=== PATIENT | female | born 1980 | race Two or more races ===

== ENCOUNTER 2018-06-01 22:12 | Emergency (ER) | payer OTHER ==
--- NOTE | 2018-06-01 22:22 | EDPHY ---
H & P Stated Complaint: back pain Time Seen by Provider: 06/01/18 22:22 HPI/ROS: HPI CHIEF COMPLAINT: Right-sided back pain CVA. HISTORY OF PRESENT ILLNESS: Very pleasant 38-year-old female she is otherwise healthy without any significant medical history she presents emergency room right-sided back pain. The pain is located right CVA and right paravertebral lumbar spine region it radiates down into her right lower abdomen and groin. At some time she does feel pain go down her right gluteus into her right leg. Not to her foot. Patient denies any injury. She denies nausea vomiting. Patient reports his pain has been present for the past 1-2 weeks however getting worse. Worse over the last 24 hr. Main complaint right back pain CVA region. Radiating to the abdomen sharp stabbing. Denies urinary symptoms Denies fever Denies blood in her urine Has never had this before. Past Medical History: Denies medical history Past Surgical History: Denies surgical history Social History: Denies drugs alcohol tobacco. Family History: Noncontributory ROS REVIEW OF SYSTEMS: 10 Systems were reviewed and negative with the exception of the elements mentioned in the history of present illness. Exam Constitutional triage nursing summary reviewed, vital signs reviewed, awake/ alert. Eyes normal conjunctivae and sclera, EOMI, PERRLA. HENT normal inspection, atraumatic, moist mucus membranes, no epistaxis, neck supple/ no meningismus, no raccoon eyes. Respiratory clear to auscultation bilaterally, normal breath sounds, no respiratory distress, no wheezing. Cardiovascular rate normal, regular rhythm, no murmur, no edema, distal pulses normal. Gastrointestinal soft, non-tender, no rebound, no guarding, normal bowel sounds, no distension, no pulsatile mass. Genitourinary mild tender palpation right CVA. Musculoskeletal no midline vertebral tenderness, full range of motion, no calf swelling, no tenderness of extremities, no meningismus, good pulses, neurovascularly intact. Skin pink, warm, & dry, no rash, skin atraumatic. Neurologic awake, alert and oriented x 3, AAOx3, moves all 4 extremities equally, motor intact, sensory intact, CN II-XII intact, normal cerebellar, normal vision, normal speech. Psychiatric normal mood/affect. Heme/Lymph/Immune no lymphadenopathy. Differential diagnosis includes but is not limited to and in no particular order : Bowel obstruction, appendicitis, gallbladder disease, diverticulitis, colitis , enteritis, perforated viscus, gastritis, GERD, esophagitis, urinary tract infection, pyelonephritis, kidney stones also includes lumbar radiculopathy, annular tear, nerve root compression, disc herniation, compression fracture, kidney stone Medical Decision Making: Plan for this patient CT scan abdomen pelvis without contrast for kidney stone, IV establishment with IV fluid bolus IV Dilaudid for pain control IV Zofran for nausea, IV fluid bolus, basic blood work, urinalysis , rule out kidney stones versus sciatica. Re-evaluation: CT scan abdomen pelvis without contrast negative for acute kidney stone. Constipation present. Blood work reviewed anemia present. CT scan shows no evidence of acute inflammation Back pain possibly sciatica. Follow up with her primary care doctor Provided prescription for ibuprofen, prednisone, [place]. Only take [place] for severe pain. Follow up with primary care doctor. Patient re-evaluated at 12:21 a.m. Resting comfortably no acute distress. Pain improved and no pain at this time after IV Dilaudid. Source: Patient - Personal History LMP (Females 10-55): 8-14 Days Ago - Medical/Surgical History Hx Asthma: No Hx Chronic Respiratory Disease: No Hx Diabetes: No Hx Cardiac Disease: No Hx Renal Disease: No Hx Cirrhosis: No Hx Alcoholism: No Hx HIV/AIDS: No Hx Splenectomy or Spleen Trauma: No - Social History Smoking Status: Never smoked Constitutional: Initial Vital Signs Temperature (C) 36.7 C 06/01/18 22:17 Heart Rate 73 06/01/18 22:17 Respiratory Rate 20 06/01/18 22:17 Blood Pressure 119/41 L 06/01/18 22:17 O2 Sat (%) 93 06/01/18 22:17 O2 Delivery Mode Room Air Allergies/Adverse Reactions: No Known Allergies Allergy (Unverified 06/01/18 22:17) Home Medications: Medication Instructions Recorded Hydrocodone/APAP 5/325 [[place] 1 - 2 tab PO Q4H PRN #10 tab 06/02/18 5/325] Ibuprofen [Motrin (*)] 800 mg PO Q6-8PRN #14 tab 06/02/18 predniSONE 60 mg PO DAILY #9 tab 06/02/18 Medical Decision Making - Diagnostics Imaging Results: Imaging Impressions Abdomen/Pelvis CT 12/15/18 22:31 Impression: 1. Moderate stool in the proximal colon. 2. Additional findings as above. Findings discussed with Alfonso Barr MD 06/02/2018 at 0:09. Attention: This CT examination is specifically designed to evaluate patients who are clinically suspected of having acute obstructive uropathy. This examination does not use radiographic contrast and provides only a limited evaluation of the abdomen, pelvis and retroperitoneum. If there is further clinical suspicion for pathological conditions other than obstructive uropathy, a complete CT evaluation of the abdomen and pelvis utilizing intravenous and enteric contrast should be considered. - Data Points Laboratory Results: Laboratory Results 06/01/18 22:36 06/01/18 22:36 06/01/18 06/01/18 06/01/18 23:14 22:36 22:36 WBC RBC Hgb Hct MCV MCH MCHC RDW Plt Count MPV Neut % (Auto) Lymph % (Auto) Wheeler % (Auto) Eos % (Auto) Baso % (Auto) Nucleat RBC Rel Count Absolute Neuts (auto) Absolute Lymphs (auto) Absolute Monos (auto) Absolute Eos (auto) Absolute Basos (auto) Absolute Nucleated RBC Immature Gran % Immature Gran # Sodium 138 mEq/L mEq/L (135-145) Potassium 3.9 mEq/L mEq/L (3.5-5.2) Chloride 107 mEq/L mEq/L (97-110) Carbon Dioxide 24 mEq/l mEq/l (22-31) Anion Gap 7 mEq/L mEq/L (6-14) BUN 17 mg/dL mg/dL (7-23) Creatinine 0.8 mg/dL mg/dL (0.6-1.0) Estimated GFR > 60 Glucose 93 mg/dL mg/dL (70-100) Calcium 9.5 mg/dL mg/dL (8.5-10.4) Total Bilirubin 0.3 mg/dL mg/dL (0.1-1.4) Conjugated Bilirubin 0.2 mg/dL mg/dL (0.0-0.5) Unconjugated Bilirubin 0.1 mg/dL mg/dL (0.0-1.1) AST 16 IU/L IU/L (14-46) ALT 22 IU/L IU/L (9-52) Alkaline Phosphatase 72 IU/L IU/L (38-126) Total Protein 6.8 g/dL g/dL (6.3-8.2) Albumin 3.9 g/dL g/dL (3.5-5.0) Lipase 154 IU/L IU/L (23-300) Beta HCG, Qual NEGATIVE Urine Color YELLOW Urine Appearance CLEAR Urine pH 6.0 (5.0-7.5) Ur Specific [place] 1.019 (1.002-1.030) Urine Protein NEGATIVE (NEGATIVE) Urine Ketones NEGATIVE (NEGATIVE) Urine Blood NEGATIVE (NEGATIVE) Urine Nitrate NEGATIVE (NEGATIVE) Urine Bilirubin NEGATIVE (NEGATIVE) Urine Urobilinogen NEGATIVE EU EU (0.2-1.0) Ur Leukocyte Esterase NEGATIVE (NEGATIVE) Urine Glucose NEGATIVE (NEGATIVE) 06/01/18 22:36 WBC 7.94 10^3/uL 10^3/uL (3.80-9.50) RBC 4.25 10^6/uL 10^6/uL (4.18-5.33) Hgb 9.9 g/dL L g/dL (12.6-16.3) Hct 32.5 % L % (38.0-47.0) MCV 76.5 fL L fL (81.5-99.8) MCH 23.3 pg L pg (27.9-34.1) MCHC 30.5 g/dL L g/dL (32.4-36.7) RDW 16.7 % H % (11.5-15.2) Plt Count 350 10^3/uL 10^3/uL (150-400) MPV 10.2 fL fL (8.7-11.7) Neut % (Auto) 56.8 % % (39.3-74.2) Lymph % (Auto) 33.8 % % (15.0-45.0) Wheeler % (Auto) 7.1 % % (4.5-13.0) Eos % (Auto) 1.8 % % (0.6-7.6) Baso % (Auto) 0.4 % % (0.3-1.7) Nucleat RBC Rel Count 0.0 % % (0.0-0.2) Absolute Neuts (auto) 4.52 10^3/uL 10^3/uL (1.70-6.50) Absolute Lymphs (auto) 2.68 10^3/uL 10^3/uL (1.00-3.00) Absolute Monos (auto) 0.56 10^3/uL 10^3/uL (0.30-0.80) Absolute Eos (auto) 0.14 10^3/uL 10^3/uL (0.03-0.40) Absolute Basos (auto) 0.03 10^3/uL 10^3/uL (0.02-0.10) Absolute Nucleated RBC 0.00 10^3/uL 10^3/uL (0-0.01) Immature Gran % 0.1 % % (0.0-1.1) Immature Gran # 0.01 10^3/uL 10^3/uL (0.00-0.10) Sodium Potassium Chloride Carbon Dioxide Anion Gap BUN Creatinine Estimated GFR Glucose Calcium Total Bilirubin Conjugated Bilirubin Unconjugated Bilirubin AST ALT Alkaline Phosphatase Total Protein Albumin Lipase Beta HCG, Qual Urine Color Urine Appearance Urine pH Ur Specific [place] Urine Protein Urine Ketones Urine Blood Urine Nitrate Urine Bilirubin Urine Urobilinogen Ur Leukocyte Esterase Urine Glucose Medications Given: Discontinued Medications Hydromorphone HCl (Dilaudid) 0.5 mg IVP EDNOW ONE Stop: 06/01/18 22:31 Last Admin: 06/01/18 22:43 Dose: 0.5 mg Sodium Chloride (Ns) 1,000 mls @ 0 mls/hr IV EDNOW ONE; Wide Open PRN Reason: Protocol Stop: 06/01/18 22:31 Last Admin: 06/01/18 22:42 Dose: 1,000 mls Ondansetron HCl (Zofran) 4 mg IVP EDNOW ONE Stop: 06/01/18 22:31 Last Admin: 06/01/18 22:43 Dose: 4 mg Departure - Departure Disposition: Home, Routine, Self-Care Clinical Impression: Back pain Qualifiers: Back pain location: low back pain Chronicity: acute Back pain laterality: right Sciatica presence: with sciatica Sciatica laterality: sciatica of right side Qualified Code(s): M54.41 - Lumbago with sciatica, right side Condition: Good Instructions: Acute Low Back Pain (ED), Lumbar Radiculopathy (ED), Flank Pain ( ED), Anemia (ED) Additional Instructions: 1. Follow up with her primary care doctor 2. Take it easy. 3. Return if worsening symptoms Referrals: Antonina Schwartz MD [Primary Care Provider] - As per Instructions Prescriptions: Hydrocodone/APAP 5/325 [[place] 5/325] 1 - 2 tab PO Q4H PRN #10 tab PRN Reason: Pain, Moderate Ibuprofen [Motrin (*)] 800 mg PO Q6-8PRN #14 tab predniSONE 60 mg PO DAILY #9 tab Print Language: Brazilian
[2018-06-01] MEDS ORDERED: HYDROmorphONE/DILAUDID 2 MG/ML INJ IVP ONE (22:30)
[2018-06-01] MEDS ORDERED: NS 1,000 ML IV ONE (22:30)
[2018-06-01] MEDS ORDERED: ONDANSETRON 4 MG/2 ML VIAL IVP ONE (22:30)
[2018-06-01 22:44] LABS: PLATELET COUNT 350 10^3/uL (150-400)
[2018-06-02 00:36] VITALS: BP 132/58
== END 2018-06-02 00:35 | disposition home or self-care (01) ==
DX: M54.41 Lumbago with sciatica, right side (principal); E86.9 Volume depletion, unspecified
CPT/HCPCS: 96374; J1170; J2405